=== PATIENT | male | born 1960 | race Hispanic/Latino ===

== ENCOUNTER 2018-01-09 19:06 | Observation (INO) | payer MEDICAID ==
[2018-01-09 19:08] VITALS: BMI 38.3
--- NOTE | 2018-01-09 19:41 | ED PDOC ---
Arrival/HPI - General Chief Complaint: Chest Pain Time Seen by Provider: 01/09/18 19:28 Historian: Patient - History of Present Illness Narrative History of Present Illness (Text): 01/09/18 19:39 57 year old male, with past medical history of hypertension, hyperlipidemia, and CAD s/p multiple cardiac stents, presents to the Emergency department complaining of intermittent chest discomfort for past couple days. Patient informs associated occasional palpitations but denies any shortness of breath. Patient denies any other associated somatic complaints. Patient denies fevers, chills, headache, dizziness, dyspnea on exertion, cough, abdominal pain, nausea, vomiting, diarrhea, back pain, neck pain, extremity pain or any other complaints. PMD: Dr. Meyer Time/Duration: < week Symptom Onset: Gradual Symptom Course: Unchanged Quality: Aching Activities at Onset: Light Context: Home Past Medical History - Provider Review Nursing Documentation Reviewed: Yes - Tetanus Immunization Tetanus Immunization: Unknown - Cardiac Hx Cardiac Disorders: Yes Hx Angina: Yes Hx Pacemaker: No Other/Comment: cardiac stents X 5 - Pulmonary Hx Respiratory Disorders: No - Neurological Hx Paralysis: No - Renal Hx Renal Disorder: No - Endocrine/Metabolic Hx Endocrine Disorders: No - Hematological/Oncological Hx Blood Disorders: No Hx Blood Transfusions: No Hx Blood Transfusion Reaction: No - Integumentary Hx Dermatological Disorder: No - Musculoskeletal/Rheumatological Hx Musculoskeletal Disorders: No - Psychiatric Hx Emotional Abuse: No Hx Physical Abuse: No Hx Substance Use: No - Past Surgical History Past Surgical History: No Previous - Surgical History Hx Cardiac Catheterization: Yes - Anesthesia Hx Anesthesia Reactions: No Hx Malignant Hyperthermia: No - Suicidal Assessment Feels Threatened In Home Enviroment: No Family/Social History - Physician Review Nursing Documentation Reviewed: Yes Family/Social History: No Known Family HX Smoking Status: Former Smoker Hx Alcohol Use: Yes Frequency of alcohol use: Socially Hx Substance Use: No Hx Substance Use Treatment: No Allergies/Home Meds Allergies/Adverse Reactions: Allergies NUTS Allergy (Severe, Uncoded 03/23/16 10:09) ANAPHYLAXIS Home Medications: Home Meds Medication Instructions Recorded Confirmed Metoprolol Tartrate 50 mg PO BID 08/30/13 01/09/18 Atorvastatin [Lipitor] 20 mg PO QPM 09/28/13 01/09/18 Ranolazine [Ranexa] 500 mg PO BID 10/08/13 01/09/18 Bupropion HCl [Wellbutrin Sr] 150 mg PO DAILY 02/26/16 01/09/18 Aspirin [Ecotrin] 81 mg PO DAILY 03/23/16 01/09/18 Isosorbide Mononitrate ER [Imdur 30 mg PO DAILY 03/23/16 01/09/18 ER] Nitroglycerin 0.4 mg SL PRN PRN 03/23/16 01/09/18 [place]-3 Fatty Acids [Fish Oil] 1,000 mg PO DAILY 03/23/16 01/09/18 Prasugrel [Effient] 10 mg PO DAILY 03/23/16 01/09/18 Furosemide [Lasix] 40 mg PO DAILY 03/29/16 01/09/18 Review of Systems - Physician Review All systems were reviewed & negative as marked: Yes - Review of Systems Constitutional: absent: Fevers Respiratory: absent: SOB, Cough Cardiovascular: Chest Pain. absent: PERALTA Gastrointestinal: absent: Abdominal Pain, Diarrhea, Nausea, Vomiting Musculoskeletal: absent: Back Pain, Neck Pain Neurological: absent: Headache, Dizziness Physical Exam Vital Signs Reviewed: Yes Vital Signs Temp Pulse Resp BP Pulse Ox 01/09/18 19:18 98.7 F 79 18 147/95 H 97 Temperature: Afebrile Blood Pressure: Hypertensive Pulse: Regular Respiratory Rate: Normal Appearance: Positive for: Well-Appearing, Non-Toxic, Comfortable Pain Distress: None Mental Status: Positive for: Alert and Oriented X 3 - Systems Exam Head: Present: Atraumatic, Normocephalic Pupils: Present: PERRL Extroacular Muscles: Present: EOMI Conjunctiva: Present: Normal Mouth: Present: Moist Mucous Membranes Neck: Present: Normal Range of Motion Respiratory/Chest: Present: Clear to Auscultation, Good Air Exchange. No: Respiratory Distress, Accessory Muscle Use Cardiovascular: Present: Regular Rate and Rhythm, Normal S1, S2. No: Murmurs Abdomen: No: Tenderness, Distention, Peritoneal Signs Back: Present: Normal Inspection Upper Extremity: Present: Normal Inspection. No: Cyanosis, Edema Lower Extremity: Present: Normal Inspection, NORMAL PULSES, Neurovascularly Intact. No: Edema, CALF TENDERNESS Neurological: Present: GCS=15, CN II-XII Intact, Speech Normal Skin: Present: Warm, Dry, Normal Color. No: Rashes Psychiatric: Present: Alert, Oriented x 3, Normal Insight, Normal Concentration Medical Decision Making ED Course and Treatment: 01/09/18 19:42 Impression: 57 year old male presents to the Emergency department complaining of chest discomfort associated with palpitations. Plan: -- Labs -- EKG -- Chest X-ray -- Urinalysis -- Reassess and disposition Prior Visits: Notes and results from previous visits were reviewed. Progress Notes: 01/09/18 19:50 EKG: Ordered, reviewed, and independently interpreted the EKG. Rate : 86 BPM Rhythm : NSR Interpretation : No ST-segment elevations or depressions, no T-wave inversions, normal intervals. Comparison : No previous EKG for comparison. 01/09/18 21:51 CXR reviewed, shows no acute processes. 01/09/18 21:57 Case discussed with biomedical equipment tech patient registration clerk, who is aware and agrees with plan. 01/09/18 22:[address] Kyle, who is aware and agrees with plan. Accepts pt in to hospitalist service. Pt will go to Telemetry observation for chest pain. - Lab Interpretations I have reviewed the lab results: Yes - RAD Interpretation Insurance Policy Issue Clerk: ED Physician - EKG Interpretation Interpreted by ED Physician: Yes Type: 12 lead EKG - Scribe Statement The provider has reviewed the documentation as recorded by the Scribe Alberto Tobias. All medical record entries made by the Scribe were at my direction and personally dictated by me. I have reviewed the chart and agree that the record accurately reflects my personal performance of the history, physical exam, medical decision making, and the department course for this patient. I have also personally directed, reviewed, and agree with the discharge instructions and disposition. Disposition/Present on Arrival - Present on Arrival Any Indicators Present on Arrival: No History of DVT/PE: No History of Uncontrolled Diabetes: No Urinary Catheter: No History of Decub. Ulcer: No History Surgical Site Infection Following: None - Disposition Have Diagnosis and Disposition been Completed?: Yes Diagnosis: Chest pain Disposition: HOSPITALIZED Disposition Time: 22:00 Patient Plan: Observation Patient Problems: Current Active Problems Problem Status Onset Chest pain Acute Discharge Instructions (ExitCare): Chest Pain (ED) Referrals: Zen Meyer MD [Primary Care Provider] - Follow up with primary Forms: [employer] (Yoruba)
[2018-01-09 20:17] LABS: ALB/GLOB RATIO 1.4 (1.1-1.8); ALBUMIN 4.5 g/dL (3.0-4.8); ALT/SGPT 36 U/L (7-56); AST/SGOT 29 U/L (17-59); BLOOD UREA NITROGEN 13 mg/dL (7-21); CALCIUM 9.8 mg/dL (8.4-10.5); GFR NON-AFRICAN AMERICAN > 60
[2018-01-09 20:23] LABS: HEMOGLOBIN 14.9 g/dL (14.0-18.0); MEAN CELL VOLUME 85.9 fl (80.0-105.0); MEAN CORPUSCULAR HEMOGLOBIN 29.1 pg (25.0-35.0); MEAN CORPUSCULAR HGB CONC 33.9 g/dl (31.0-37.0); MEAN PLATELET VOLUME 8.7 fl (7.0-11.0); RBC 5.12 10^6/uL (3.5-6.1); RED CELL DISTRIBUTION WIDTH 13.8 % (11.5-14.5); WHITE BLOOD COUNT 10.2 10^3/ul (4.5-11.0)
[2018-01-09 20:27] LABS: INR 1.03; PARTIAL THROMBOPLASTIN TIME 28.8 Seconds (25.1-36.5); PROTHROMBIN TIME 11.7 SECONDS (9.4-12.5); TROPONIN I < 0.01 ng/mL
--- NOTE | 2018-01-09 22:30 | CP.PCM.HP ---
<Fiordaliza Spangler - Last Filed: 01/10/18 01:08> History of Present Illness - History of Present Illness History of Present Illness: Fiordaliza Spangler, PGY1 Hospital H&P This is a 57 year old male with PMH of HTN, HLD and CAD s/p stents in the LAD/RCA in 2013 presenting to the ED for one day history of chest pain that began at rest. Chest pain is rated at 4/10, last a few seconds, intermittent, characterized as dull, non radiating, and denies anything making the pain worse or better. He took ASA and nitroglycerin without improvement in symptoms. He states this pain is not similar to previous history of anginal pain. He last saw his accounts administrator, Dr. Singh, 8 months ago. He admits to being compliant with his medications. He is currently asymptomatic and denies CP, SOB, fevers, headaches, chills, nausea, vomiting, chills, back pain, urinary complaints, numbness, tingling, swelling, recent travel and recent sickness. 12 point ROS noted here, otherwise unremarkable. In ED, EKG showed NSR at 86bpm with no ST changes. CXR did not show any acute disease (interpreted by me). Troponin was <0.01. Blood work was otherwise unremarkable. PMD: Dr. Gates Brickmason: Dr. Singh PMH: as above SH: quit smoking in 2013, smoked 1/3 ppd for 10 years, occasional drinking, denies drugs Sx: cardiac stents in 2013, back surgery, tonsillectomy FH: Mom had [place] at 40, CABG in her 50s. Father has [place], pancreatic cancer All: nuts Present on Admission - Present on Admission Any Indicators Present on Admission: No Past Patient History - Tetanus Immunizations Tetanus Immunization: Unknown - Past Medical History & Family History Past Medical History?: Yes - Past Social History Smoking Status: Former Smoker - CARDIAC Hx Cardiac Disorders: Yes Hx Angina: Yes Hx Pacemaker: No Other/Comment: cardiac stents X 5 - PULMONARY Hx Respiratory Disorders: No - NEUROLOGICAL Hx Paralysis: No - RENAL Hx Chronic Kidney Disease: No - ENDOCRINE/METABOLIC Hx Endocrine Disorders: No - HEMATOLOGICAL/ONCOLOGICAL Hx Blood Disorders: No Hx Blood Transfusions: No Hx Blood Transfusion Reaction: No - INTEGUMENTARY Hx Dermatological Problems: No - MUSCULOSKELETAL/RHEUMATOLOGICAL Hx Musculoskeletal Disorders: No - PSYCHIATRIC Hx Emotional Abuse: No Hx Physical Abuse: No Hx Substance Use: No - SURGICAL HISTORY Hx Cardiac Catheterization: Yes - ANESTHESIA Hx Anesthesia Reactions: No Hx Malignant Hyperthermia: No Meds Allergies/Adverse Reactions: Allergies Allergy/AdvReac Type Severity Reaction Status Date / Time NUTS Allergy Severe ANAPHYLAXIS Uncoded 03/23/16 10:09 Physical Exam - Constitutional Appears: No Acute Distress - Head Exam Head Exam: ATRAUMATIC, NORMAL INSPECTION - Eye Exam Eye Exam: EOMI Pupil Exam: PERRL - ENT Exam ENT Exam: Mucous Membranes Moist - Respiratory Exam Respiratory Exam: Clear to Auscultation Bilateral. absent: Respiratory Distress - Cardiovascular Exam Cardiovascular Exam: REGULAR RHYTHM, +S1, +S2 - GI/Abdominal Exam GI & Abdominal Exam: Normal Bowel Sounds. absent: Firm, Guarding - Extremities Exam Extremities exam: Positive for: normal inspection. Negative for: calf tenderness - Neurological Exam Neurological exam: Alert, Oriented x3 - Skin Skin Exam: Normal Color, Warm Results - Vital Signs Recent Vital Signs: Last Vital Signs Temp 98.7 F 01/09/18 19:18 Pulse 82 01/09/18 21:10 Resp 18 01/09/18 21:10 BP 118/88 01/09/18 21:10 Pulse Ox 95 01/09/18 21:10 - Labs Result Diagrams: 01/09/18 19:02 01/09/18 19:02 Labs: Laboratory Results - last 24 hr 01/09/18 01/09/18 01/09/18 19:02 19:02 19:02 WBC 10.2 D RBC 5.12 Hgb 14.9 Hct 44.0 MCV 85.9 MCH 29.1 MCHC 33.9 RDW 13.8 Plt Count 250 MPV 8.7 PT 11.7 INR 1.03 APTT 28.8 Sodium 140 Potassium 3.6 Chloride 100 Carbon Dioxide 27 Anion Gap 17 BUN 13 Creatinine 1.1 Est GFR ( Amer) > 60 Est GFR (Non-Af Amer) > 60 Random Glucose 94 Calcium 9.8 Total Bilirubin 0.6 AST 29 ALT 36 Alkaline Phosphatase 86 Lactate Dehydrogenase 383 Total Creatine Kinase 82 Troponin I < 0.01 D Total Protein 7.6 Albumin 4.5 Globulin 3.1 Albumin/Globulin Ratio 1.4 Assessment & Plan - Assessment and Plan (Free Text) Assessment: This is a 57 year old male with PMH of HTN, HLD and CAD s/p stents in the LAD/RCA in 2013 presenting to the ED for one day history of chest pain that began at rest. Plan: Chest Pain: -initial EKG showed NSR at 86bpm with no ST changes, will repeat in AM -initial troponin <0.01, will repeat x2 -CXR did not show any acute disease (interpreted by me) -echo pending -thyroid panel pending -Brickmason on consult, Dr. Singh -continue home meds, effient, ranexa, metoprolol, lasix, ASA, lipitor -last cath in 03/2016 showed patent stent in RCA/LAD, preserved EF of 55-60% Hx HLD -lipid panel pending -A1c pending -continue home lipitor Hx HTN -currently controlled -continue home metoprolol, lasix PPX with protonix, heparin 5K Heart Healthy Diet Patient seen and case discussed with attending, Dr. Kyle <Tere Kyle - Last Filed: 01/10/18 01:36> Results - Vital Signs Recent Vital Signs: Last Vital Signs Temp 98.7 F 01/09/18 19:18 Pulse 82 01/09/18 21:10 Resp 18 01/09/18 21:10 BP 118/88 01/09/18 21:10 Pulse Ox 95 01/09/18 21:10 - Labs Result Diagrams: 01/09/18 19:02 01/09/18 19:02 Labs: Laboratory Results - last 24 hr 01/09/18 01/09/18 01/09/18 19:02 19:02 19:02 WBC 10.2 D RBC 5.12 Hgb 14.9 Hct 44.0 MCV 85.9 MCH 29.1 MCHC 33.9 RDW 13.8 Plt Count 250 MPV 8.7 PT 11.7 INR 1.03 APTT 28.8 Sodium 140 Potassium 3.6 Chloride 100 Carbon Dioxide 27 Anion Gap 17 BUN 13 Creatinine 1.1 Est GFR ( Amer) > 60 Est GFR (Non-Af Amer) > 60 Random Glucose 94 Calcium 9.8 Total Bilirubin 0.6 AST 29 ALT 36 Alkaline Phosphatase 86 Lactate Dehydrogenase 383 Total Creatine Kinase 82 Troponin I < 0.01 D Total Protein 7.6 Albumin 4.5 Globulin 3.1 Albumin/Globulin Ratio 1.4 Attending/Attestation - Attestation I have personally seen and examined this patient.: Yes I have fully participated in the care of the patient.: Yes I have reviewed all pertinent clinical information: Yes
[2018-01-09] MEDS ORDERED: Pantoprazole 40 mg EC Tab PO ONE (22:37)
[2018-01-10 03:51] VITALS: O2SAT 96
[2018-01-10] MEDS ORDERED: Pantoprazole 40 mg EC Tab PO SCH (06:00)
[2018-01-10 06:41] VITALS: RESP 20; TEMP 97.9
[2018-01-10 07:13] LABS: BASO # 0.02 K/mm3 (0.0-2.0); BASO % 0.3 % (0.0-3.0); EOS # 0.1 (0.0-0.7); EOS % 1.7 % (1.5-5.0); GRAN # 4.91 (1.4-6.5); GRAN % 62.8 % (50.0-68.0); HEMOGLOBIN 13.4 g/dL (14.0-18.0); LYMPH # 2.2 (1.2-3.4); LYMPH % 28.5 % (22.0-35.0); MEAN CORPUSCULAR HEMOGLOBIN 28.5 pg (25.0-35.0); MEAN CORPUSCULAR HGB CONC 32.7 g/dl (31.0-37.0); MEAN PLATELET VOLUME 8.5 fl (7.0-11.0); MONO # 0.5 (0.1-0.6); MONO % 6.7 % (1.0-6.0); RBC 4.71 10^6/uL (3.5-6.1); RED CELL DISTRIBUTION WIDTH 14.1 % (11.5-14.5); WHITE BLOOD COUNT 7.8 10^3/ul (4.5-11.0)
[2018-01-10 07:18] LABS: ALB/GLOB RATIO 1.3 (1.1-1.8); ALBUMIN 3.8 g/dL (3.0-4.8); ALT/SGPT 32 U/L (7-56); AST/SGOT 24 U/L (17-59); BLOOD UREA NITROGEN 14 mg/dL (7-21); GFR NON-AFRICAN AMERICAN > 60; HDL CHOLESTEROL 45 mg/dL (29-60)
[2018-01-10 07:23] LABS: FREE T4 1.26 ng/dL (0.78-2.19)
[2018-01-10 09:16] LABS: LDL CHOLESTEROL 66 mg/dL (0-129)
[2018-01-10] MEDS ORDERED: Magnesium Sulfate 2 gm/50 ml 2 GM/50 ML BAG IVPB ONE (09:22)
[2018-01-10] MEDS ORDERED: Magnesium Oxide 400 mg Tab UD PO STA (09:23)
[2018-01-10] MEDS ORDERED: Potassium Chloride 20 mEq ER Tab PO ONE (09:23)
--- NOTE | 2018-01-10 09:54 | RAD ---
Date of service: 01/09/2018 HISTORY: chest pain COMPARISON: Portable chest 08/30/2013. FINDINGS: LUNGS: There is likely some mammillation left hemidiaphragm with gas seen in the gastric viscus at the left upper quadrant abdomen. No interval acute infiltrate identified bilaterally. PLEURA: No significant pleural effusion identified, no pneumothorax apparent. CARDIOVASCULAR: No aortic atherosclerotic calcification present Mild cardiomegaly present. No pulmonary vascular congestion. OSSEOUS STRUCTURES: No significant abnormalities. VISUALIZED UPPER ABDOMEN: Normal. OTHER FINDINGS: None. IMPRESSION: Mild cardiomegaly. No pulmonary vascular congestion or interval airspace disease identified bilaterally.
[2018-01-10] MEDS ORDERED: buPROPion SR 150 MG TABLET PO SCH (10:00)
[2018-01-10] MEDS ORDERED: Omega-3-Acid Ethyl Esters 1 GM Cap PO SCH (10:00)
[2018-01-10] MEDS ORDERED: Ranolazine [Ranexa] 500 MG (HOME MED) PO SCH (10:00)
--- NOTE | 2018-01-10 10:15 | CARD ---
APPROVED REPORT Date of service: 01/09/2018 EKG Measurement Heart [id number] <Conclusion> Normal sinus rhythm Mild J point elevation 2,3,F No change
[2018-01-10 11:03] VITALS: BP 130/70; PULSE 88
--- NOTE | 2018-01-10 14:53 | CARD ---
APPROVED REPORT Date of service: 01/10/2018 EXAM: Two-dimensional and M-mode echocardiogram with Doppler and color Doppler. INDICATION Chest Pain ACS 2D DIMENSIONS Left Atrium (2D)3.7 (1.6-4.0cm)IVSd1.6 (0.7-1.1cm) LVDd4.4 (3.9-5.9cm)PWd1.4 (0.7-1.1cm) LVDs3.1 (2.5-4.0cm)FS (%) 28.4 % LVEF (%)55.1 (>50%) M-Mode DIMENSIONS Aortic Root3.10 (2.2-3.7cm)Aortic Cusp Exc.1.90 (1.5-2.0cm) Aortic Valve AoV Peak Gzxhsnbc801.0cm/Luis Peak GR.6mmHg Mitral Valve MV E Jawhhjnf41.8cm/sMV A Csyvedoh30.8cm/sE/A ratio0.8 TDI E/Lateral E'0.0E/Medial E'0.0 Tricuspid Valve TR Peak [id number]/sRAP [id number] Peak Gr.6mmHg [id number] LEFT VENTRICLE The left ventricle is normal size. There is moderate concentric left ventricular hypertrophy. The left ventricular function is normal. The left ventricular ejection fraction is within the normal range. There is normal LV segmental wall motion. RIGHT VENTRICLE The right ventricle is normal size. The right ventricular systolic function is normal. ATRIA The left atrium size is normal. The right atrium size is normal. The interatrial septum is intact with no evidence for an atrial septal defect. AORTIC VALVE The aortic valve is normal in structure. No aortic regurgitation is present. There is no aortic valvular stenosis. MITRAL VALVE The mitral valve is normal in structure. There is no mitral valve regurgitation noted. TRICUSPID VALVE There is mild tricuspid regurgitation. PULMONIC VALVE The pulmonic valve is not well visualized. GREAT VESSELS The aortic root is normal in size. PERICARDIAL EFFUSION There is no pleural effusion. There is no pericardial effusion. <Conclusion> Technically difficult study. Chamber sizes appear wthin normal limits. Moderate concentric LVH. LV systolic function appears within normal limits. Mild TR.
--- NOTE | 2018-01-10 16:44 | CP.PCM.DIS ---
<Grant Gutiérrez - Last Filed: 01/10/18 16:46> Provider - Provider Date of Admission: 01/09/18 22:00 Attending physician: Afia Redd DO Primary care physician: Zen Meyer MD Time Spent in preparation of Discharge (in minutes): 35 Diagnosis - Discharge Diagnosis (1) Chest wall discomfort Status: Chronic Priority: Medium (2) History of myocardial infarction Status: Chronic Priority: Low (3) History of hypertension Status: Chronic Priority: Low (4) History of coronary artery disease Status: Chronic Priority: Low Hospital Course - Lab Results Lab Results: Most Recent Lab Values WBC 7.8 10^3/ul (4.5-11.0) D 01/10/18 06:00 RBC 4.71 10^6/uL (3.5-6.1) 01/10/18 06:00 Hgb 13.4 g/dL (14.0-18.0) L 01/10/18 06:00 Hct 41.0 % (42.0-52.0) L 01/10/18 06:00 MCV 87.0 fl (80.0-105.0) 01/10/18 06:00 MCH 28.5 pg (25.0-35.0) 01/10/18 06:00 MCHC 32.7 g/dl (31.0-37.0) 01/10/18 06:00 RDW 14.1 % (11.5-14.5) 01/10/18 06:00 Plt Count 197 10^3/uL (120.0-450.0) 01/10/18 06:00 MPV 8.5 fl (7.0-11.0) 01/10/18 06:00 Gran % 62.8 % (50.0-68.0) 01/10/18 06:00 Lymph % (Auto) 28.5 % (22.0-35.0) 01/10/18 06:00 [place] % (Auto) 6.7 % (1.0-6.0) H 01/10/18 06:00 Eos % (Auto) 1.7 % (1.5-5.0) 01/10/18 06:00 Baso % (Auto) 0.3 % (0.0-3.0) 01/10/18 06:00 Gran # 4.91 (1.4-6.5) 01/10/18 06:00 Lymph # (Auto) 2.2 (1.2-3.4) 01/10/18 06:00 [place] # (Auto) 0.5 (0.1-0.6) 01/10/18 06:00 Eos # (Auto) 0.1 (0.0-0.7) 01/10/18 06:00 Baso # (Auto) 0.02 K/mm3 (0.0-2.0) 01/10/18 06:00 PT 11.7 SECONDS (9.4-12.5) 01/09/18 19:02 INR 1.03 01/09/18 19:02 APTT 28.8 Seconds (25.1-36.5) 01/09/18 19:02 Sodium 139 mmol/L (132-148) 01/10/18 06:00 Potassium 3.6 mmol/L (3.6-5.0) 01/10/18 06:00 Chloride 103 mmol/L (98-107) 01/10/18 06:00 Carbon Dioxide 25 mmol/L (21-33) 01/10/18 06:00 Anion Gap 14 (10-20) 01/10/18 06:00 BUN 14 mg/dL (7-21) 01/10/18 06:00 Creatinine 0.9 mg/dl (0.8-1.5) 01/10/18 06:00 Est GFR ( Amer) > 60 01/10/18 06:00 Est GFR (Non-Af Amer) > 60 01/10/18 06:00 Random Glucose 114 mg/dL (70-110) H 01/10/18 06:00 Hemoglobin A1c 5.9 % (4.2-6.5) 01/10/18 06:00 Calcium 9.0 mg/dL (8.4-10.5) 01/10/18 06:00 Phosphorus 4.7 mg/dL (2.5-4.5) H 01/10/18 06:00 Magnesium 1.4 mg/dL (1.7-2.2) L 01/10/18 06:00 Total Bilirubin 0.8 mg/dL (0.2-1.3) 01/10/18 06:00 AST 24 U/L (17-59) 01/10/18 06:00 ALT 32 U/L (7-56) 01/10/18 06:00 Alkaline Phosphatase 82 U/L (38-126) 01/10/18 06:00 Lactate Dehydrogenase 383 U/L (333-699) 01/09/18 19:02 Total Creatine Kinase 82 U/L (35-230) 01/09/18 19:02 Troponin I < 0.01 ng/mL 01/10/18 06:00 Total Protein 6.7 g/dL (5.8-8.3) 01/10/18 06:00 Albumin 3.8 g/dL (3.0-4.8) 01/10/18 06:00 Globulin 2.9 gm/dL 01/10/18 06:00 Albumin/Globulin Ratio 1.3 (1.1-1.8) 01/10/18 06:00 Triglycerides 458 mg/dL (35-160) H 01/10/18 06:00 Cholesterol 146 mg/dL (130-200) 01/10/18 06:00 LDL Cholesterol Direct 66 mg/dL (0-129) 01/10/18 06:00 HDL Cholesterol 45 mg/dL (29-60) 01/10/18 06:00 Free T4 1.26 ng/dL (0.78-2.19) 01/10/18 06:00 TSH 3rd Generation 4.24 mIU/mL (0.46-4.68) 01/10/18 06:00 - Hospital Course Hospital Course: Grant Gutiérrez DO, PGY-1 Hospitalist Discharge Summary for Dr. Monty Redd Upon Admission: Patient is a 57 year old male with a past medical history of HTN, HLD, and CAD s/p multiple cardiac stents with the most recent one being in 2013, who presented to the ED complaining of intermittent chest discomfort for 1 day. He described his discomfort as a dull, non-radiating, intermittent ache that he feels as his heart beats, and is located to the left side of his chest more than midline. He stated that it did not feel anginal. He has had this type of discomfort for the past 2-3 years, for which he has seen his PMD and traveling phlebotomist for in the past. He was worked up with a 24-hour holter monitor which did not have any significant findings. He denied shortness of breath, headaches, lightheadedness, and discomfort upon movement or palpation of the chest wall. He stated that aspirin and nitroglycerin did not help his symptoms. In the ED, the patient was found to be afebrile and hypertensive. EKG was NSR without ST or T wave changes. Initial troponin was negative. He was subsequently admitted for ACS rule out. Hospital Course: He was worked up with CXR which showed mild cardiomegaly, but no pulmonary vascular congestion or interval airspace disease identified bilaterally. An echocardiogram was also done, which found chamber sizes to appear within normal limits, but with moderate concentric LVH, LV systolic function within normal limits, and mild TR. Patient labs showed negative troponins (x3). LDH, CK, HgbA1c (5.9), and TSH/FreeT4 were within normal limits, but he had an elevated triglyceride level (458) on lipid panel. Upon discharge, the patient was stable without chest pain/discomfort. Discharge: Patient is stable and cleared from a medical standpoint for discharge. Importance of follow up with his PMD (Mitch) and traveling phlebotomist (Samantha) was stressed with patient. Patient was also counseled to improve his diet and try his best to lose additional weight. Patient verbalized understanding and stated his diet could improve. He was discharged on gemfibrozil for elevated triglycerides. He is also recommended to retun to the ER if his symptoms reoccur or if they progressively worsen. Discharge Exam - Head Exam Head Exam: ATRAUMATIC, NORMAL INSPECTION - Eye Exam Eye Exam: EOMI, PERRL - ENT Exam ENT Exam: Mucous Membranes Moist - Neck Exam Neck exam: Full Rom, Normal Inspection - Respiratory Exam Respiratory Exam: NORMAL BREATHING PATTERN. absent: Accessory Muscle Use, Chest Wall Tenderness, Rales, Rhonchi, Wheezes - Cardiovascular Exam Cardiovascular Exam: REGULAR RHYTHM, RRR, +S1, +S2. absent: Diastolic murmur, Gallop, Rubs, Systolic Murmur - GI/Abdominal Exam GI & Abdominal Exam: Normal Bowel Sounds, Soft. absent: Guarding, Rebound, Tenderness - Extremities Exam Extremities exam: normal inspection, pedal pulses present - Neurological Exam Neurological exam: Alert, Oriented x3 - Psychiatric Exam Psychiatric exam: Normal Affect, Normal Mood - Skin Skin Exam: Dry, Intact, Warm Discharge Plan - Discharge Medications Prescriptions: RX: Gemfibrozil [Lopid] 600 mg PO DAILY 30 Days #30 tab - Follow Up Plan Condition: STABLE Disposition: HOME/ ROUTINE Instructions: Chest Pain (DC) Additional Instructions: Follow up with Dr Gilbert, traveling phlebotomist, outpatient within 1 week Follow up with Dr Meyer, primary care doctor within 3-5 days, you will need repeat blood work with primary care doctor for your cholesterol and elevated triglycerides. Weight reduction is strongly advised. Please diet and exercise. If symptoms return please return to the emergency room. Referrals: Marialuisa Gilbert MD [Staff Provider] - 2 Week Zen Meyer MD [Primary Care Provider] - <Afia Redd - Last Filed: 01/11/18 14:57> Provider - Provider Date of Admission: 01/09/18 22:00 Attending physician: Afia Redd DO Primary care physician: Zen Meyer MD Hospital Course - Lab Results Lab Results: Most Recent Lab Values WBC 7.8 10^3/ul (4.5-11.0) D 01/10/18 06:00 RBC 4.71 10^6/uL (3.5-6.1) 01/10/18 06:00 Hgb 13.4 g/dL (14.0-18.0) L 01/10/18 06:00 Hct 41.0 % (42.0-52.0) L 01/10/18 06:00 MCV 87.0 fl (80.0-105.0) 01/10/18 06:00 MCH 28.5 pg (25.0-35.0) 01/10/18 06:00 MCHC 32.7 g/dl (31.0-37.0) 01/10/18 06:00 RDW 14.1 % (11.5-14.5) 01/10/18 06:00 Plt Count 197 10^3/uL (120.0-450.0) 01/10/18 06:00 MPV 8.5 fl (7.0-11.0) 01/10/18 06:00 Gran % 62.8 % (50.0-68.0) 01/10/18 06:00 Lymph % (Auto) 28.5 % (22.0-35.0) 01/10/18 06:00 [place] % (Auto) 6.7 % (1.0-6.0) H 01/10/18 06:00 Eos % (Auto) 1.7 % (1.5-5.0) 01/10/18 06:00 Baso % (Auto) 0.3 % (0.0-3.0) 01/10/18 06:00 Gran # 4.91 (1.4-6.5) 01/10/18 06:00 Lymph # (Auto) 2.2 (1.2-3.4) 01/10/18 06:00 [place] # (Auto) 0.5 (0.1-0.6) 01/10/18 06:00 Eos # (Auto) 0.1 (0.0-0.7) 01/10/18 06:00 Baso # (Auto) 0.02 K/mm3 (0.0-2.0) 01/10/18 06:00 PT 11.7 SECONDS (9.4-12.5) 01/09/18 19:02 INR 1.03 01/09/18 19:02 APTT 28.8 Seconds (25.1-36.5) 01/09/18 19:02 Sodium 139 mmol/L (132-148) 01/10/18 06:00 Potassium 3.6 mmol/L (3.6-5.0) 01/10/18 06:00 Chloride 103 mmol/L (98-107) 01/10/18 06:00 Carbon Dioxide 25 mmol/L (21-33) 01/10/18 06:00 Anion Gap 14 (10-20) 01/10/18 06:00 BUN 14 mg/dL (7-21) 01/10/18 06:00 Creatinine 0.9 mg/dl (0.8-1.5) 01/10/18 06:00 Est GFR ( Amer) > 60 01/10/18 06:00 Est GFR (Non-Af Amer) > 60 01/10/18 06:00 Random Glucose 114 mg/dL (70-110) H 01/10/18 06:00 Hemoglobin A1c 5.9 % (4.2-6.5) 01/10/18 06:00 Calcium 9.0 mg/dL (8.4-10.5) 01/10/18 06:00 Phosphorus 4.7 mg/dL (2.5-4.5) H 01/10/18 06:00 Magnesium 1.4 mg/dL (1.7-2.2) L 01/10/18 06:00 Total Bilirubin 0.8 mg/dL (0.2-1.3) 01/10/18 06:00 AST 24 U/L (17-59) 01/10/18 06:00 ALT 32 U/L (7-56) 01/10/18 06:00 Alkaline Phosphatase 82 U/L (38-126) 01/10/18 06:00 Lactate Dehydrogenase 383 U/L (333-699) 01/09/18 19:02 Total Creatine Kinase 82 U/L (35-230) 01/09/18 19:02 Troponin I < 0.01 ng/mL 01/10/18 06:00 Total Protein 6.7 g/dL (5.8-8.3) 01/10/18 06:00 Albumin 3.8 g/dL (3.0-4.8) 01/10/18 06:00 Globulin 2.9 gm/dL 01/10/18 06:00 Albumin/Globulin Ratio 1.3 (1.1-1.8) 01/10/18 06:00 Triglycerides 458 mg/dL (35-160) H 01/10/18 06:00 Cholesterol 146 mg/dL (130-200) 01/10/18 06:00 LDL Cholesterol Direct 66 mg/dL (0-129) 01/10/18 06:00 HDL Cholesterol 45 mg/dL (29-60) 01/10/18 06:00 Free T4 1.26 ng/dL (0.78-2.19) 01/10/18 06:00 TSH 3rd Generation 4.24 mIU/mL (0.46-4.68) 01/10/18 06:00 Attending/Attestation - Attestation I have personally seen and examined this patient.: Yes I have fully participated in the care of the patient.: Yes I have reviewed all pertinent clinical information, including history, physical exam and plan: Yes Notes (Text): Patient seen and examined by me with resident at 10:10AM on 01/10/18. Case including discharge plan discussed with resident. Agree with above with following additions/corrections. Patient is a 57 year old male with past medical history significant for hy pertension, hyperlipidemia, and CAD presented to the emergency room with chest pain. Please see H&P for full details. Patient was admitted with chest pain, hyperlipidemia, and hypertension. Troponins were within normal limits. TSH was within normal limits. Chest xray per radiologist showed mild cardiomegaly, no pulmonary vascular congestion or interval airspace disease identified bilaterally. Cardiology was consulted. 2D echo per traveling phlebotomist showed technically difficult study, chamber sizes appear within normal limits, moderate concentric LVH, LV systolic function appears within normal limits, milt trace regurgitation. Patient was continued on ranexa, Lasix, Lipitor, metoprolol, ASA, and Effient. Patient was found to hypomagnesemia. Magnesium was replaced. Patient was also given potassium. Patient was found to have hypertriglyceridemia. Patient was started on gemfibrozil. Patient was continued on his home Wellbutrin. Patient was feeling much better. Case was discussed with Dr. Gilbert and patient was cleared for discharge home by Dr. Gilbert. Diet, exercise and weight reduction was discussed at length with patient. Patient was discharged home. On day of discharge, patient stated he was feeling much better. No chest pain or shortness of breath. No headaches or dizziness. No lightheadedness. No fevers or chills. No dysuria or burning with urination. No nausea, vomiting, or abdominal pain. No diarrhea or constipation. Physical Exam: Gen: Awake and alert sitting up in bed in no acute distress HEENT: Normocephalic atraumatic. Extraocular muscles intact. Pupils equal and reactive. No scleral icterus. Oropharynx is pink and moist, no pharyngeal erythema or exudate appreciated. Neck is supple. Cardiovascular: Normal rhythm. Normal S1, S2. No murmurs, rubs, or gallops appreciated Pulmonary: Normal respiratory effort. No rhonchi, rales or wheezing appreciated. Gastrointestinal: Soft, nontender, nondistended, positive bowel sounds all 4 quadrants, no guarding. Obese abdomen. Musculoskeletal: Moves all extremities, no calf tenderness. No edema appreciated Central nervous system: AAO x 3. CN2-12 grossly intact. 5/5 muscle strength all extremities. Dermatologic: Skin warm and dry. Please see chart for full details. Follow up instructions: Patient to follow up PMD within 3-5 days. Patient to have repeat blood work to monitor cholesterol with PMD. Patient to follow up with traveling phlebotomist within one week. Weight reduction strongly advised. All instructions explained to patient in detail. Patient both understands and agrees to all instructions. Written instructions also given. Time spent in discharging the patient including chart review, medication reconciliation, discussion with the patient, medical office clerk, consultants, and nursing staff was greater than 30 minutes.
--- NOTE | 2018-01-10 17:07 | CON ---
DATE: 01/10/2018 CARDIAC EVALUATION REASON FOR THE CONSULTATION: Chest pain, rule out ACS. BRIEF CLINICAL HISTORY: This is a 57-year-old male with past medical history of significant for morbid obesity, coronary artery disease status post stent in LAD and RCA in 2013; came in with some chest pain, feels like a thumping in the chest, happened with some sort of change in posture, not the same pain as he had when he had his stent. Denies any dyspnea on exertion, chest pain on exertion. PAST MEDICAL HISTORY: Significant for morbid obesity, history of hypertension, hyperlipidemia, coronary artery disease status post sent, PTCA to LAD. PREVIOUS CARDIAC WORKUP: The patient had a cardiac catheterization on 03/29/2016 that revealed patent stent in LAD, patent stent in RCA, distal LAD and distal OM1 and OM2, small vessel disease not suitable for PCI, distal LAD is a bridge collaterals and loop collaterals from D2, preserved LV function. Very distal LAD has 99% of stenosis near the apex; as mentioned not suitable for PCI. Preserved LV function ejection fraction 55%, EDP with a range of 25 to 30. At that time, medical treatment was recommended, aggressive medical treatment emphasis made on weight reduction and discontinued Aceon 2-1/2 years ago and added Lasix on the regimen. Prior to that, the patient had a stress test that was abnormal; so following this, the patient had a cardiac catheterization. A stress test was done on 02/26/2016 that revealed abnormal myocardial perfusion study suggestive of ischemia, ejection fraction reported 63%. Prior to that, the patient had a cardiac catheterization on 10/08/2013 with a stent placed in LAD and RCA deployed. PERSONAL HISTORY: Denies smoking. Denies any history of alcohol abuse. CURRENT MEDICATIONS: The patient is taking Lasix 40 mg daily, Wellbutrin 300 mg daily, Ranexa 500 mg b.i.d., Aceon 10 mg daily, [place] 1000 mg daily, nitroglycerin 0.4, metoprolol tartrate 50 mg daily, isosorbide 30 mg daily, atorvastatin 30 mg daily, aspirin 81 mg daily, lamotrigine (Lamictal) dose not calculated. ALLERGIES: Allergy to nuts. REVIEW OF SYSTEMS: As per HPI. PHYSICAL EXAMINATION: VITAL SIGNS: Height of the patient 5 feet 11 inches, weight of the patient 275 pounds, body mass index 40 kg/m2. Vitals - temperature afebrile, heart rate 81, blood pressure 134/73. HEENT: PERRLA. Extraocular muscles are intact. NECK: Supple. No carotid bruits or thyromegaly. CHEST: Clear to auscultation. HEART: S1 and S2 regular. ABDOMEN: Soft. EXTREMITIES: Clubbing and cyanosis negative. LABORATORY DATA: Blood workup as follows: WBC 7.8, hemoglobin 13.3, hematocrit 41.0, platelet count 197. Chemistry shows sodium 139, potassium 3.6, chloride 103, carbon dioxide 25, anion gap of 14, BUN 14, creatinine 0.9. Troponin 0.01 x3 negative. PSA 4.42, triglyceride 485, cholesterol 146, LDL 46, HDL 45. IMPRESSION: A 57-year-old male with the past medical history significant for coronary artery disease, morbid obesity, hypertension, hyperlipidemia, ex-smoker, history of coronary artery stent in left anterior descending and right coronary artery in 08/2013 and followup stress test abnormal in 02/2016, followed up cardiac catheterization in 03/2016, patent left anterior descending stent and patent stent in right coronary artery, distal left anterior descending artery disease, obtuse marginal-1 and obtuse marginal-2 disease, small vessel disease not suitable for percutaneous coronary intervention, medical treatment recommended, preserved left ventricular function, ejection fraction 55% to 60%. Admit at this time with atypical chest pain suggested aggressive medical treatment, emphasis of weight reduction, modification of lifestyle, modification for risk factor for coronary artery disease, compliance with the medication . Last time, it was suggested that if Aceon can be come off, but we will leave up to the family care. For now, we suggest to discontinue Aceon; okay to discontinue telemetry and possible discharge home, follow up with Dr. Singh in one week. We will give 40 of K-Dur to supplement potassium and also aggressively supplement magnesium. We will give 1 mag rider and 1 mag-oxide and give 40 of potassium and we will discontinue telemetry after that. Thank you, Dr. Redd, for providing us the opportunity in taking care of the patient, Darius Villegas. Marialuisa Gilbert MD cc: Dr. Jacob Redd
== END 2018-01-10 12:26 | disposition home or self-care (01) ==
LOC: ED 19:06 → ERH 22:00 → 2RNO 01-10 00:29
PROVIDERS: ADMIT Hospitalist; ATTEND Hospitalist
DX: R07.89 Other chest pain (principal); I25.10 Atherosclerotic heart disease of native coronary artery without angina pectoris; I25.2 Old myocardial infarction; I10 Essential (primary) hypertension; E78.5 Hyperlipidemia, unspecified; E78.1 Pure hyperglyceridemia; E66.01 Morbid (severe) obesity due to excess calories; Z68.38 Body mass index [BMI] 38.0-38.9, adult; Z95.5 Presence of coronary angioplasty implant and graft; Z87.891 Personal history of nicotine dependence
CPT/HCPCS: 36415; 71045; 80053; 80061; 82550; 83036; 83615; 83735; 84100; 84439; 84443; 84484; 85025; 85027; 85610; 85730; 93005; 93306; G0378

== ENCOUNTER 2018-07-13 09:47 | Outpatient (CLI) | payer MEDICAID | END 2018-07-13 09:48 | disposition home or self-care (01) | LOC: CARDIO 09:47 ==